=== PATIENT | female | born 1950 | race African-American/Black ===

== ENCOUNTER 2022-11-04 14:18 | Emergency (ER) | payer MEDICARE ==
[~2022-11-04] VITALS: Ht 165.1 cm; Wt 77.1 kg
[~2022-11-04 14:18] MED LIST: AMOXICILLIN500 MG PO; ARTHROTEC 50 MG75 MG PO; BP MEDICATION PO; CELEBREX50 MG PO; DIFLUCAN150 MG PO; ESTROGEN PO; GYNODIOL1 MG PO; LIDEX0.05% T; Lopressor25 MG PO; MOTRIN800 MG PO; PREDNICOT20 MG PO; PRILOSEC20 M1 PO; ROBAXIN500 MG PO; Tobradex 0.3-0.15 ML OPH
[2022-11-04] MEDS ORDERED: TRAMADOL HCL50 MG PO (15:02)
== END 2022-11-04 15:11 | disposition home or self-care (01) ==
LOC: ED 14:18
DX: M21.611 Bunion of right foot (principal); M79.671 Pain in right foot; Z79.899 Other long term (current) drug therapy; Z90.711 Acquired absence of uterus with remaining cervical stump

== ENCOUNTER 2023-07-14 08:01 | Emergency (ER) | payer MEDICARE ==
[~2023-07-14] VITALS: Ht 162.5 cm; Wt 97.5 kg
[~2023-07-14 08:01] MED LIST changes: +TRAMADOL HCL50 MG PO
[2023-07-14] MEDS ORDERED: Dexamethasone Sodium Phospha 20 MG/5 ML VIAL IM ONE (08:15)
[2023-07-14] MEDS ORDERED: methylPREDNISolone sod succ 40 MG VIAL IM ONE (08:20)
[2023-07-14] MEDS ORDERED: PREDNISONE20 M1 PO (09:33)
[2023-07-14] MEDS ORDERED: MELOXICAM15 MG PO (09:33)
== END 2023-07-14 09:40 | disposition home or self-care (01) ==
LOC: ED 08:01
DX: M10.9 Gout, unspecified (principal); I10 Essential (primary) hypertension; K21.9 Gastro-esophageal reflux disease without esophagitis; M19.90 Unspecified osteoarthritis, unspecified site; Z90.710 Acquired absence of both cervix and uterus; Z98.890 Other specified postprocedural states